=== PATIENT | female | born 1960 | race Two or more races ===

== ENCOUNTER 2022-12-15 06:45 | Day surgery (SDC) | payer OTHER ==
[~2022-12-15] VITALS: Ht 154.9 cm; Wt 74.8 kg
== END 2022-12-15 16:10 | disposition home or self-care (01) ==
LOC: CIR.AMB 06:45
PROVIDERS: ATTEND Surgery
DX: C50.411 Malignant neoplasm of upper-outer quadrant of right female breast (principal); R59.0 Localized enlarged lymph nodes; Z88.0 Allergy status to penicillin; Z20.822 Contact with and (suspected) exposure to COVID-19
CPT/HCPCS: 19301; 38525; 19281; A9541; L8600